=== PATIENT | male | born 1975 | race Caucasian/White ===

== ENCOUNTER → 2021-11-01 | Outpatient (CLI) | payer OTHER | LOC: M RAD 16:09 | PROVIDERS: ATTEND Orthopaedic Surgery Adult Reconstructive Orthopaedic Surgery | DX: M25.461 Effusion, right knee (principal); M71.21 Synovial cyst of popliteal space [Baker], right knee; M94.261 Chondromalacia, right knee ==

== ENCOUNTER → 2021-12-03 | Outpatient (CLI) | payer OTHER | LOC: M SOG 09:00 | PROVIDERS: ATTEND Orthopaedic Surgery Adult Reconstructive Orthopaedic Surgery | DX: M25.552 Pain in left hip (principal) ==

== ENCOUNTER → 2022-01-26 | Outpatient (CLI) | payer OTHER ==
[~2022-01-26] MED LIST: IBUP-1730 PO
== END ==
LOC: M LABSMTC 10:26
PROVIDERS: ATTEND Anesthesiology
DX: Z01.818 Encounter for other preprocedural examination (principal); Z11.52 Encounter for screening for COVID-19

== ENCOUNTER → 2022-01-28 | Outpatient (CLI) | payer OTHER | LOC: M EKG 08:32 | PROVIDERS: ATTEND Anesthesiology | DX: Z01.810 Encounter for preprocedural cardiovascular examination (principal) ==

== ENCOUNTER 2022-01-31 08:50 | Day surgery (SDC) | payer OTHER ==
[~2022-01-31] VITALS: Ht 177.8 cm; Wt 124.7 kg
[2022-01-31] MEDS ORDERED: EPINEPHrine 1MG/ML INJ 30ML MD-VIAL As Ordered ONE (10:57)
[2022-01-31] MEDS ORDERED: BUPIVACAINE/EPIN 0.5% 30 ML VIAL As Ordered ONE (10:57)
[2022-01-31] MEDS ORDERED: ONDANSETRON 4MG 2ML VIAL As Ordered ONE (11:27)
[2022-01-31] MEDS ORDERED: LIDOCAINE 2% 100MG/5ML SDV (FOR ANES.) As Ordered ONE (11:27)
[2022-01-31] MEDS ORDERED: MIDAZOLAM INJ 2MG/2ML VIAL (J2250 PER 1MG) As Ordered ONE (11:27)
[2022-01-31] MEDS ORDERED: fentaNYL 100 MCG/2 ML INJECTION As Ordered ONE (11:27)
[2022-01-31] MEDS ORDERED: dexameTHASONE 4 MG/ML 1ML VIAL (J1100 PER 1MG) As Ordered ONE (11:27)
[2022-01-31] MEDS ORDERED: ACETAMINOPHEN 1000MG 100ML IV BTL (OFIRMEV) (J0131 PER 10MG) As Ordered ONE (11:32)
[2022-01-31] MEDS ORDERED: MEPERIDINE INJ 25 MG/ML VIAL (J2175) IV PRN (12:45)
[2022-01-31] MEDS ORDERED: ONDANSETRON 4MG 2ML VIAL IV PRN (12:45)
[2022-01-31] MEDS ORDERED: HYDROMORPHONE HCL 0.5 MG/ 0.5 ML SYRINGE (J1170 PER 1) IV PRN (12:45)
[2022-01-31] MEDS ORDERED: LR 1,000 ML IV SCH ×3 (12:45→13:05)
[2022-01-31] MEDS ORDERED: oxyCODONE 5MG TAB PO PRN (12:45)
[2022-01-31] MEDS ORDERED: fentaNYL 100 MCG/2 ML INJECTION IV PRN (12:45)
[2022-01-31 13:55] VITALS: BP 134/66
== END 2022-01-31 13:55 | disposition home or self-care (01) ==
LOC: M SDC 08:50
PROVIDERS: ATTEND Orthopaedic Surgery Adult Reconstructive Orthopaedic Surgery
DX: M22.2X1 Patellofemoral disorders, right knee (principal); M22.41 Chondromalacia patellae, right knee; K21.9 Gastro-esophageal reflux disease without esophagitis; Z88.0 Allergy status to penicillin; G47.30 Sleep apnea, unspecified; F17.220 Nicotine dependence, chewing tobacco, uncomplicated
CPT/HCPCS: 29877; J0131; J0171; J1100; J2250; J2405; J3010

== ENCOUNTER 2022-04-20 09:15 | Outpatient (RCR) | payer OTHER | END 2022-05-16 | LOC: M PT 09:15 | PROVIDERS: ATTEND Orthopaedic Surgery Adult Reconstructive Orthopaedic Surgery | DX: M22.41 Chondromalacia patellae, right knee (principal) ==

== ENCOUNTER → 2022-04-25 | Outpatient (CLI) | payer OTHER | LOC: M RAD 09:35 | PROVIDERS: ATTEND Orthopaedic Surgery Adult Reconstructive Orthopaedic Surgery | DX: M22.41 Chondromalacia patellae, right knee (principal); M22.2X1 Patellofemoral disorders, right knee; M85.861 Other specified disorders of bone density and structure, right lower leg; M77.31 Calcaneal spur, right foot ==

== ENCOUNTER → 2022-05-12 | Outpatient (CLI) | payer OTHER | LOC: M LABSMTC 09:12 | PROVIDERS: ATTEND Anesthesiology | DX: Z01.812 Encounter for preprocedural laboratory examination (principal); Z11.52 Encounter for screening for COVID-19 ==

== ENCOUNTER 2022-05-17 06:13 | Observation (INO) | payer OTHER ==
[~2022-05-17] VITALS: Ht 175.3 cm; Wt 128.1 kg
[~2022-05-17 06:13] MED LIST changes: +ACETAMINOPHEN 500 MG TAB PO ONE; +NAPROXEN 250 MG TAB PO ONE; +NS 1,000 ML IV ONE; +PREGABALIN 25 MG CAP (LYRICA) PO ONE; +ROPIVA 125MG/EPINEPH 0.25MG/CLONID 40MCG/KETOR 15MG IN NS 50ML SYRINGE PA ONE; +ceFAZolin SOD 2 GM in IV 1 EA IV ONE; +dexameTHASONE 4 MG/ML 1ML VIAL (J1100 PER 1MG) IV ONE
[2022-05-17] MEDS ORDERED: LR 1,000 ML IV SCH ×3 (06:45→14:10)
[2022-05-17] MEDS ORDERED: TRANEXAMIC ACID 100 MG/ML 10ML VIAL As Ordered ONE (07:14)
[2022-05-17] MEDS ORDERED: ceFAZolin 1GM VIAL (J0690 PER 500MG) As Ordered ONE (07:41)
[2022-05-17] MEDS ORDERED: METOCLOPRAMIDE INJ 10MG/2ML VIAL (J2765 PER 1) As Ordered ONE (08:02)
[2022-05-17] MEDS ORDERED: ROCURONIUM BROMIDE 50 MG/5 ML VIAL As Ordered ONE ×2 (08:02→08:44)
[2022-05-17] MEDS ORDERED: LIDOCAINE 2% 100MG/5ML SDV (FOR ANES.) As Ordered ONE (08:02)
[2022-05-17] MEDS ORDERED: ONDANSETRON 4MG 2ML VIAL As Ordered ONE (08:02)
[2022-05-17] MEDS ORDERED: propofoL 200 MG/20 ML VIAL As Ordered ONE (08:02)
[2022-05-17] MEDS ORDERED: MIDAZOLAM INJ 2MG/2ML VIAL (J2250 PER 1MG) As Ordered ONE (08:02)
[2022-05-17] MEDS ORDERED: fentaNYL 250 MCG/5 ML INJECTION As Ordered ONE (08:02)
[2022-05-17] MEDS ORDERED: LIDOCAINE PRES-FREE 2% 10ML AMP As Ordered ONE (08:02)
[2022-05-17] MEDS ORDERED: SUGAMMADEX SODIUM 500 MG/5 ML VIAL (BRIDION) As Ordered ONE (08:02)
[2022-05-17] MEDS ORDERED: PHENYLephrine 500MCG 5ML (100MCG/ML) SYRINGE As Ordered ONE (08:05)
[2022-05-17] MEDS ORDERED: ePHEDrine SULFATE 25 MG/5 ML(5MG/ML) SYRINGE As Ordered ONE (08:23)
[2022-05-17] MEDS ORDERED: oxyCODONE 5MG TAB PO PRN ×2 (11:10→14:40)
[2022-05-17] MEDS ORDERED: HYDROMORPHONE HCL 0.5 MG/ 0.5 ML SYRINGE (J1170 PER 1) IV PRN (11:10)
[2022-05-17] MEDS ORDERED: fentaNYL 100 MCG/2 ML INJECTION IV PRN (11:10)
[2022-05-17] MEDS ORDERED: ONDANSETRON 4MG 2ML VIAL IV PRN ×3 (11:10→14:40)
[2022-05-17 13:07] VITALS: BP 133/80
[2022-05-17 14:00] VITALS: BP 146/91
[2022-05-17] MEDS ORDERED: SENNA 8.6 MG TAB (SENOKOT) PO PRN (14:40)
[2022-05-17] MEDS ORDERED: traMADol 50 MG TAB PO PRN (14:40)
[2022-05-17 15:00] VITALS: BP 120/71
[2022-05-17] MEDS: ACETAMINOPHEN TAB 650MG DOSE (2X325MG) PO SCH ×2 (15:20→20:50)
[2022-05-17] MEDS: NAPROXEN 250 MG TAB PO SCH (15:20)
[2022-05-17 16:00] VITALS: BP 115/69
[2022-05-17] MEDS: ceFAZolin SOD 2 GM in IV 1 EA IV SCH (16:13)
[2022-05-17 19:49] VITALS: BP 107/65
[2022-05-17] MEDS: ASPIRIN 81MG ENTERIC TABLET PO SCH (20:40)
[2022-05-17] MEDS: DOCUSATE SODIUM 100MG CAPSULE PO SCH (20:40)
[2022-05-17 21:19] VITALS: BP 101/61
[2022-05-18] MEDS: ceFAZolin SOD 2 GM in IV 1 EA IV SCH (00:32)
[2022-05-18] MEDS: oxyCODONE 5MG TAB PO PRN ×3 (00:32→14:41)
[2022-05-18] MEDS: LR 1,000 ML IV SCH ×2 (00:32→08:34)
[2022-05-18] MEDS: NAPROXEN 250 MG TAB PO SCH ×2 (01:57→14:38)
[2022-05-18] MEDS: ACETAMINOPHEN TAB 650MG DOSE (2X325MG) PO SCH ×3 (01:57→14:39)
[2022-05-18 02:00] VITALS: BP 110/65
[2022-05-18 05:21] VITALS: BP 107/63
[2022-05-18 07:21] LABS: HEMATOCRIT 37.3 % (42.0-52.0); HEMOGLOBIN 12.6 g/dl (13.5-17.5); MEAN CORPUSCULAR HGB CONC 33.8 g/dl (32.0-36.5); MEAN CORPUSCULAR VOLUME 91.6 fl (80.0-96.0); PLATELET COUNT, AUTOMATED 217 10^3/uL (150-450); RED BLOOD COUNT 4.07 10^6/uL (4.30-6.10); WHITE BLOOD COUNT 16.9 10^3/uL (4.0-10.0)
[2022-05-18 07:51] VITALS: BP 108/64
[2022-05-18 07:57] LABS: BLOOD UREA NITROGEN 17 MG/DL (7-18); C REACTIVE PROTEIN QUANTITATIV 0.61 MG/DL (0.00-0.30); CALCIUM LEVEL 8.7 MG/DL (8.5-10.1); CARBON DIOXIDE LEVEL 25 MEQ/L (21-32); CHLORIDE LEVEL 103 MEQ/L (98-107); GLOMERULAR FILTRATION RATE > 60.0 (>60); GLUCOSE, FASTING 225 MG/DL (70-100); MAGNESIUM LEVEL 2.1 MG/DL (1.8-2.4); POTASSIUM SERUM 4.2 MEQ/L (3.5-5.1); SODIUM LEVEL 135 MEQ/L (136-145)
[2022-05-18] MEDS ORDERED: ASCORBIC ACID 500 MG TAB PO SCH (09:00)
[2022-05-18] MEDS ORDERED: FERROUS SULFATE 325MG TAB PO SCH (09:00)
[2022-05-18] MEDS: ASPIRIN 81MG ENTERIC TABLET PO SCH (09:25)
[2022-05-18] MEDS: DOCUSATE SODIUM 100MG CAPSULE PO SCH (09:26)
[2022-05-18 10:13] VITALS: BP 129/72
[2022-05-18] MEDS ORDERED: SODIUM CHLORIDE 0.9% 1000ML IV ONE ×3 (12:30→14:00)
[2022-05-18 14:00] VITALS: BP 150/92
[2022-05-18] MEDS ORDERED: COLA100C5 PO (17:26)
[2022-05-18] MEDS ORDERED: OXYC-517 PO (17:26)
[2022-05-18] MEDS ORDERED: ASPI81TAEC PO (17:26)
[2022-05-18] MEDS ORDERED: SENN18TA PO (17:26)
== END 2022-05-18 18:45 | disposition home or self-care (01) ==
LOC: M SDC 06:13 → M MS5PR 11:40
PROVIDERS: ADMIT Internal Medicine; ATTEND Orthopaedic Surgery Adult Reconstructive Orthopaedic Surgery
DX: M17.11 Unilateral primary osteoarthritis, right knee (principal); Z88.0 Allergy status to penicillin; Z79.899 Other long term (current) drug therapy; Z79.82 Long term (current) use of aspirin; F17.220 Nicotine dependence, chewing tobacco, uncomplicated
CPT/HCPCS: 27447; 36415; 73560; 80048; 83605; 83735; 84145; 85027; 86140; 87040; 88304; 88311; 96361; 96365; 96366; 96375; 96376; 97116; 97161; 97530; C1776; G0378; J0690; J1100; J1170; J2250; J2370; J2405; J2765; J3010; S2900

== ENCOUNTER → 2022-05-23 | Outpatient (CLI) | payer OTHER ==
[~2022-05-23] MED LIST changes: -ACETAMINOPHEN 500 MG TAB PO ONE; +ASPI81TAEC PO; +COLA100C5 PO; -NAPROXEN 250 MG TAB PO ONE; -NS 1,000 ML IV ONE; +OXYC-517 PO; -PREGABALIN 25 MG CAP (LYRICA) PO ONE; -ROPIVA 125MG/EPINEPH 0.25MG/CLONID 40MCG/KETOR 15MG IN NS 50ML SYRINGE PA ONE; +SENN18TA PO; -ceFAZolin SOD 2 GM in IV 1 EA IV ONE; -dexameTHASONE 4 MG/ML 1ML VIAL (J1100 PER 1MG) IV ONE
== END ==
LOC: M RAD 11:21
PROVIDERS: ATTEND Orthopaedic Surgery
DX: Z96.651 Presence of right artificial knee joint (principal); M79.89 Other specified soft tissue disorders; M79.661 Pain in right lower leg

== ENCOUNTER → 2022-05-30 | Outpatient (CLI) | payer OTHER | LOC: M SOG 09:38 | PROVIDERS: ATTEND Orthopaedic Surgery Adult Reconstructive Orthopaedic Surgery | DX: Z96.651 Presence of right artificial knee joint (principal) ==

== ENCOUNTER → 2022-07-20 | Outpatient (CLI) | payer OTHER | LOC: M SOG 13:28 | PROVIDERS: ATTEND Orthopaedic Surgery Adult Reconstructive Orthopaedic Surgery | DX: Z96.651 Presence of right artificial knee joint (principal); M25.461 Effusion, right knee; M79.89 Other specified soft tissue disorders; Z91.81 History of falling ==

== ENCOUNTER → 2022-07-26 | Outpatient (CLI) | payer OTHER | LOC: M RAD 15:43 | PROVIDERS: ATTEND Orthopaedic Surgery Adult Reconstructive Orthopaedic Surgery | DX: Z96.651 Presence of right artificial knee joint (principal); M25.461 Effusion, right knee; R93.6 Abnormal findings on diagnostic imaging of limbs; R60.0 Localized edema ==

== ENCOUNTER → 2022-09-27 | Outpatient (CLI) | payer OTHER ==
[~2022-09-27] MED LIST changes: +BUPIVACAINE HCL 0.5% 30ML VIAL As Ordered ONE; +methylPREDNISolone 80MG/ML SUSP 1ML VIAL As Ordered ONE
== END ==
LOC: M IRPRO 14:48
PROVIDERS: ATTEND Orthopaedic Surgery Adult Reconstructive Orthopaedic Surgery
DX: M70.72 Other bursitis of hip, left hip (principal)
CPT/HCPCS: 20610; J1040

== ENCOUNTER → 2023-07-25 | Outpatient (CLI) | payer OTHER ==
[~2023-07-25] MED LIST changes: -BUPIVACAINE HCL 0.5% 30ML VIAL As Ordered ONE; +SENN-111 PO; -SENN18TA PO
== END ==
LOC: M IRPRO 11:04
PROVIDERS: ATTEND Orthopaedic Surgery Adult Reconstructive Orthopaedic Surgery
DX: M70.62 Trochanteric bursitis, left hip (principal)
CPT/HCPCS: 20611; 76942; J0665; J1040